=== PATIENT | male | born 1975 ===

== ENCOUNTER → 2024-07-25 | Outpatient (CLI) | payer OTHER | LOC: LAB 09:55 → LAB SHORT 09:55 | DX: L08.9 Local infection of the skin and subcutaneous tissue, unspecified (principal); L43.2 Lichenoid drug reaction; L73.9 Follicular disorder, unspecified; L81.0 Postinflammatory hyperpigmentation; D22.5 Melanocytic nevi of trunk; D18.01 Hemangioma of skin and subcutaneous tissue; L82.1 Other seborrheic keratosis; L81.8 Other specified disorders of pigmentation; Z71.89 Other specified counseling | CPT/HCPCS: 87070; 87077; 87147; 87186 ==